=== PATIENT | male | born 1950 | race Caucasian/White ===

== ENCOUNTER 2016-08-28 10:17 | Day surgery (SDC) | payer MEDICARE, OTHER ==
--- NOTE | ~2016-08-28 | EGD ---
EGD REPORT [facility] [address] [address] NAME: ROM PECK : [birth year] STATUS : REG [facility]#: [id number] AGE: 66 ADM/REG DATE : 08/28/16 MR#: [id number] REPORT SERV DATE: 08/28/16 DICTATED BY: HANNA EDWARDS DATE: 08/28/16 REPORT STATUS : Draft TRANSCRIBED BY: [facility] DATE: 08/28/16 [facility] Patient Name: Rom Peck Date of : 1950 Attending MD: HANNA EDWARDS MD Procedure Date No Time: 08/28/2016 Procedure: Colonoscopy Indications: High risk colon cancer surveillance: Personal history of colonic polyps, FH of Colonic Polyps - 1st degree relative Referring MD: LANCE GAITAN Medicines: as per anesthesia Complications: No immediate complications. Procedure: Pre-Anesthesia Assessment: - ASA Grade Assessment: II - A patient with mild systemic disease. After I obtained informed consent, the scope was passed under direct vision. Throughout the procedure, the patient's blood pressure, pulse, and oxygen saturations were monitored continuously. The PCF [id number] was introduced through the anus and advanced to the cecum, identified by appendiceal orifice and ileocecal valve. The colonoscopy was performed without difficulty. The patient tolerated the procedure. The quality of the bowel preparation was fair. Findings: The perianal and digital rectal examinations were normal. The colon (entire examined portion) appeared normal. Impression: - The entire examined colon is normal. Recommendation: - Repeat colonoscopy in 3 years for surveillance. Procedure Code(s): --- Professional --- 89814, Colonoscopy, flexible, proximal to splenic flexure; diagnostic, with or without collection of specimen(s) by brushing or washing, with or without colon decompression (separate procedure) Diagnosis Code(s): --- Professional --- Z86.010, Personal history of colonic polyps Z83.71, Family history of colonic polyps EGD REPORT [facility] [address] [id number] NAME: ROM PECK : [birth year] STATUS : [place] [facility]#: [id number] AGE: 66 ADM/REG DATE : 08/28/16 MR#: [id number] REPORT SERV DATE: 08/28/16 DICTATED BY: HANNA EDWARDS. DATE: 08/28/16 REPORT STATUS : Draft TRANSCRIBED BY: [employer] DATE: 08/28/16 CPT copyright 2013 [employer]. All rights reserved. The codes documented in this report are preliminary and upon medical insurance coder review may be revised to meet current compliance requirements. HANNA EDWARDS MD 08/28/2016 12:49 PM This report has been signed electronically. Number of Addenda: 0 Note Initiated On: 08/28/2016 12:30 PM Scope Withdrawal Time 0 hours 6 minutes 44 seconds [id number] [id number]
[~2016-08-28 10:17] MED LIST: HERBS PO; THERA M PLUS PO; VITAMINS PO; VITS/HERBS
== END 2016-08-28 23:59 | disposition home or self-care (01) ==
LOC: DMU 10:17
PROVIDERS: Internal Medicine Gastroenterology
PROC: 0DJD8ZZ Inspection of Lower Intestinal Tract, Via Natural or Artificial Opening Endoscopic (ICD-10-PCS; principal; 2016-08-28 11:00)
DX: Z12.11 Encounter for screening for malignant neoplasm of colon (principal); F41.9 Anxiety disorder, unspecified; J45.909 Unspecified asthma, uncomplicated; Z83.71 Family history of colonic polyps; Z86.010 Personal history of colon polyps; Z98.41 Cataract extraction status, right eye; Z98.42 Cataract extraction status, left eye; Z96.1 Presence of intraocular lens; Z98.890 Other specified postprocedural states; Z91.030 Bee allergy status; Z86.19 Personal history of other infectious and parasitic diseases; Z88.0 Allergy status to penicillin; J30.89 Other allergic rhinitis